=== PATIENT | male | born 1980 | race Two or more races ===

== ENCOUNTER 2018-12-27 13:26 | Emergency (ER) | payer OTHER ==
[~2018-12-27] VITALS: Ht 182.9 cm; Wt 115.7 kg
[2018-12-27 13:38] VITALS: BP 124/84
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
[2018-12-27] MEDS ORDERED: LIDODERM700 M1 TOPIC (14:05)
[2018-12-27] MEDS ORDERED: ROBAXIN-750750 MG PO (14:05)
[2018-12-27] MEDS ORDERED: IBUPROFEN600 MG ORAL (14:05)
[2018-12-27 14:42] VITALS: BP 120/67
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
== END 2018-12-27 14:43 | disposition home or self-care (01) ==
LOC: EMR 13:50
DX: S16.1XXA Strain of muscle, fascia and tendon at neck level, initial encounter (principal); S39.012A Strain of muscle, fascia and tendon of lower back, initial encounter; S29.011A Strain of muscle and tendon of front wall of thorax, initial encounter; V43.52XA Car driver injured in collision with other type car in traffic accident, initial encounter; Y92.410 Unspecified street and highway as the place of occurrence of the external cause
CPT/HCPCS: 99283